=== PATIENT | female | born 2000 | race Hispanic/Latino ===

== ENCOUNTER → 2022-11-09 | Day surgery (SDC) | payer BC, OTHER ==
[~2022-11-09] MED LIST: BUPIVACAINE HCL 0.5% INJ 30 ML VIAL INJ ONE; CEFAZOLIN SODIUM 2 GM ONE; DEXAMETHASONE SOD PHOS INJ 4 MG/ML SDV ONE; FENTANYL CITRATE/PF 100MCG/2 ML INJ ONE; KETOROLAC TROMETHAMINE 30 MG/ML VIAL ONE; LACTATED RINGER'S 1,000 ML ONE; LIDOCAINE HCL 2% LOCAL INJ 5 ML SDV VIAL INJ ONE; MIDAZOLAM HCL 2 MG/2 ML VIAL ONE; ONDANSETRON HCL INJ 2MG/ML 2ML 2 MG/ML VIAL ONE; POVIDONE IODINE 0.05% 0.05 % ML PO ONE; PROPOFOL IV EMULSION 10 MG/ML 20 ML VIAL ONE; SEVOFLURANE INHAL SOLN 250 ML PEN BTL ONE
[2022-11-09 11:31] VITALS: TEMP 98.7
[2022-11-09 12:30] VITALS: BP 129/85; PULSE 87; RESP 15; O2SAT 97
== END | disposition home or self-care (01) ==
LOC: OR 08:15 → EDBD 10:30
PROVIDERS: ATTEND Podiatrist Foot & Ankle Surgery
DX: M79.5 Residual foreign body in soft tissue (principal)
CPT/HCPCS: 28190; 28192; 81025; 88300; J1100; J1885; J2001; J2250; J2405; J2704; J3010; J7121; 76000